=== PATIENT | female | born 1935 | race Caucasian/White ===

== ENCOUNTER → 2016-05-05 | Outpatient (CLI) | payer MEDICARE, OTHER ==
[~2016-05-05] MED LIST: ACETAMINOPHEN PO; ALAVERT10 MG PO; AMIODARONE PO; AMLODIPINE PO; AMLODIPINE-BEN1 EACH PO; ANTIVERT PO; ASPIRIN81 MG PO; AUGMENTIN PO; AVANDIA PO; BACTRIM 400-801 TA1; BACTRIM DS TABL1 TAB PO; BENAZEPRIL HCL5 MG PO; BENAZEPRIL PO; BENZEPRIL PO; BIOTIN; BISACODYL EC5 MG PO; CARBIDOPA-1 UDTAB.S3 PO; CARDIZEM CD PO; CETIRIZINE HCL10 MG PO; CLOBEX TOP; COLACE PO; CORDARONE200 M1 PO; COUMADIN PO; COUMADIN2.5 MG PO; DARVOCET-N 1001 TAB PO; ECOTRIN81 M1 PO; FORTAMET PO; GLUCOPHAGE XR500 MG PO; GLUCOPHAGE500 MG PO; GLUCOTROL XL PO; GLUCOTROL10 MG PO; HUMULIN N100 U/ML SUBQ; HUMULIN N300 U/3 ML SUBQ; HUMULIN R100 U/ML SUBQ; HYDROCORTISONE-30 GM TOP; JANUVIA PO; KEFLEX500 M2 PO; LEVEMIR SUBQ; LEVOTHROID100 MC1 PO; LEVOTHYROXINE112 MCG PO; LEXAPRO PO; LIPITOR PO; LORTAB 7.5-5001 TAB PO; LOTENSIN20 MG PO; LOTREL 5/20 MG1 CAP PO; LUMIGAN; MEDROL DOSEPAK4 MG DOB; METFORMIN PO; METOPROLOL SUCC50 MG PO; MILK OF MAGNESIA PO; MYSOLINE250 MG PO; MYSOLINE50 MG PO; NEURONTIN PO; NITROSTAT0.4 MG SL; NOVOLOG100 U/ML SUBQ; NOVOLOG7030; NOVOLOG7030 SUBQ; OMEPRAZOLE20 M2 PO; PACERONE PO; PHENERGAN25 M1 DOB; PRADAXA150 MG PO; PRAVACHOL PO; PRAVASTATIN SOD40 MG PO; PROBIOTIC1 EACH PO; PROTONIX PO; SIMVASTATIN80 MG PO; SMZ; SYNTHROID PO; TMP; TOFRANIL25 MG PO; TOPROL XL PO; TOPROL XL50 MG PO; ULTRAM PO; VANOS60 GM TOP; VITAMIN D PO; ZOFRAN PO
[2016-05-05 13:48] LABS: BILIRUBIN,TOTAL 0.8 mg/dL (0.2-2.0); CALCIUM SERUM 9.1 mg/dL (8.4-10.2); CREATININE SERUM 1.4 mg/dL (0.6-1.4); GLOM FILT RATE Estimated 38.6 mL/min (>60); PHOSPHOROUS 3.7 mg/dL (2.5-4.6); POTASSIUM 3.8 mmol/L (3.5-5.1); PROTEIN TOTAL SERUM 7.3 g/dL (6.0-8.3); URIC ACID 5.4 mg/dL (2.6-7.2)
[2016-05-09 05:10] LABS: CALCIUM (PTHINTACT) 9.6 mg/dL (8.6-10.4)
== END | disposition home or self-care (01) ==
LOC: CLAB 12:12
PROVIDERS: Internal Medicine Nephrology
DX: N18.3 Chronic kidney disease, stage 3 (moderate) (principal); N25.81 Secondary hyperparathyroidism of renal origin
CPT/HCPCS: 36415; 80053; 82310; 83970; 84100; 84550

== ENCOUNTER → 2016-10-25 | Outpatient (CLI) | payer MEDICARE, OTHER ==
--- NOTE | ~2016-10-25 | CT4 ---
[facility] A Service of [facility] RADIOLOGY TEXT RESULTS PATIENT: GINA CASAREZ [facility] : 39 UNIT #: [id number] AGE: [address]: Rajat Nance MD SEX: F ORDER DR: [id number] [facility] [address] [place], [place] [address] [id number] O MR#: [id number] Acc #: [id number] NAME: GINA CASAREZ : 1935 SEX: F STUDY DATE/TIME: 10/25/2016 10:26 UNIT: [facility] ROOM: STUDY DESCRIPTION: CT Abd and Pelv Wo Cont Attending Physician: Rajat Nance M.D. Referring Physician: Rajat Nance M.D. Ordering Physician: Rajat Nance M.D. Primary Care Physician: Mathew Avila M.D. MEDICAL IMAGING REPORT This report is preliminary unless electronic signature is present EXAM CT abdomen and pelvis. INDICATIONS Hematuria. 1-year duration. TECHNIQUE CT of the abdomen and pelvis without contrast. Coronal and sagittal reconstructions were obtained. This CT exam was performed with one or more of the following radiation dose reduction techniques: automatic exposure control, adjustment of mA and/or kV according to patient size, and iterative reconstruction. COMPARISON CT abdomen and pelvis, 07/02/2014. FINDINGS There is a 2 mm nonobstructing calculus in the mid-right kidney. There is no hydronephrosis or ureteral calculi. There is mild bilateral renal cortical atrophy. There is a nodular configuration to liver as well as some periportal atrophy. This suggests background cirrhosis; however, it is not definitive. Gallbladder surgically absent. The pancreas, spleen, and adrenal glands are normal. Not mentioned above, there is a benign cyst off the mid right kidney. The bowel is not dilated. There are occasional colonic diverticula. No diverticulitis. Stranding in the anterior abdominal fat is compatible with injection sites. Pelvis: Bladder is unremarkable. The ovaries are normal. Uterus is surgically absent. Bladder is unremarkable. No enlarged pelvic or inguinal lymph nodes. No acute osseous abnormalities. [facility] A Service of [facility] & [facility] RADIOLOGY TEXT RESULTS PATIENT: GINA CASAREZ LOCATION: [facility] : 39 UNIT #: [id number] AGE: [address]: Rajat Nance MD SEX: F ORDER DR: IMPRESSION 1. Nonobstructing right renal calculus. 2. Mild renal cortical atrophy. 3. Abnormal morphology to liver suggestive; however, not definitive for; background cirrhosis. Dictated by... Lázaro Evans M.D. THIS IS AN ELECTRONICALLY VERIFIED REPORT Lázaro Evans M.D. at 10/26/2016 11:40 AM DEVAN/latasha TD: 10/26/2016 06:15 JOB #: [id number] MEDICAL IMAGING REPORT Page 1 of 1 COPY
== END | disposition home or self-care (01) ==
LOC: CCAT 08:45
DX: R31.0 Gross hematuria (principal); N20.0 Calculus of kidney; N26.1 Atrophy of kidney (terminal); R93.2 Abnormal findings on diagnostic imaging of liver and biliary tract
CPT/HCPCS: 74176